=== PATIENT | male | born 1970 | race Caucasian/White ===

== ENCOUNTER 2020-01-25 17:20 | Emergency (ER) | payer OTHER ==
[2020-01-25] MEDS ORDERED: Metoclopramide HCl 10 MG/2 ML VIAL ONE (18:04)
[2020-01-25] MEDS ORDERED: Metoclopramide HCl 10 MG TAB ONE (18:10)
== END 2020-01-25 18:13 | disposition home or self-care (01) ==
LOC: ERS 17:20
DX: I10 Essential (primary) hypertension (principal); E66.9 Obesity, unspecified
CPT/HCPCS: 99283; J2765